=== PATIENT | female | born 1935 | race Asian ===

== ENCOUNTER 2018-10-28 10:51 | Inpatient (IN) | payer MEDICARE, OTHER ==
[~2018-10-28] VITALS: Ht 160 cm; Wt 73.5 kg
[~2018-10-28 10:51] MED LIST: AMLO1CAP2 PO; ATEN50TA PO; ATOR20TA86 PO; GLIP10TA9 PO; ISOS120T14 PO; METF-961 PO; NITR0.4I3 IV; PIOG15TA6 PO; RALO60 PO; WARF3TAB29 PO
[2018-10-28] MEDS ORDERED: ACAR50TA11 PO (11:02)
[2018-10-28] MEDS ORDERED: BENA20 PO (11:02)
[2018-10-28] MEDS ORDERED: BENZ-51 PO (11:02)
[2018-10-28] MEDS ORDERED: VITAD1000 PO (11:02)
[2018-10-28] MEDS ORDERED: FURO20 PO (11:02)
[2018-10-28] MEDS ORDERED: SITA1TAB6 PO (11:02)
[2018-10-28] MEDS ORDERED: RIVA15T PO (11:02)
[2018-10-28] MEDS ORDERED: CARV25 PO (11:02)
[2018-10-28] MEDS ORDERED: SLOWK8 PO (11:02)
[2018-10-28] MEDS ORDERED: TIMO.25OS OU (11:02)
[2018-10-28] MEDS ORDERED: OS500 PO (11:02)
[2018-10-28 11:40] LABS: HEMATOCRIT 36.1 % (36-46); HEMOGLOBIN 12.1 g/dL (12.0-16.0); MEAN CORPUSCULAR HEMOGLOBIN 25.1 pg (26.0-34.0); MEAN CORPUSCULAR HGB CONC 33.5 G/dL (31.0-37.0); MEAN CORPUSCULAR VOLUME 75 fL (80-100); PLATELET COUNT (AUTO) 191 K/uL (150-450); RED BLOOD CELL COUNT(AUTO) 4.82 MIL/uL (4.00-5.20); RED CELL DISTRIBUTION WIDTH 16.5 % (11.5-14.5)
[2018-10-28] MEDS ORDERED: SODIUM CHLORIDE 0.9% 2,150 ML IV ONE (11:41)
[2018-10-28 11:43] LABS: INR 1.1 (0.9-1.1); PROTHROMBIN TIME 11.7 SEC (9.4-11.6)
[2018-10-28 11:45] LABS: ALBUMIN 1.7 g/dL (3.4-5.0); BILIRUBIN,TOTAL 0.6 mg/dL (0.1-1.0); CALCIUM, TOTAL 8.3 mg/dL (8.8-10.5); CREATININE 3.59 mg/dL (0.60-1.30); POTASSIUM 4.8 mmol/L (3.5-5.1)
[2018-10-28] MEDS ORDERED: CefTRIAXone SODIUM 2 GM in DEXTROSE 5%-WATER 50 ML IV ONE (11:45)
[2018-10-28] MEDS ORDERED: SODIUM CHLORIDE 0.9% 250 ML IV ONE (11:45)
[2018-10-28 11:48] LABS: LACTIC ACID 1.6 mmol/L (0.4-2.0)
[2018-10-28 11:57] LABS: BAND NEUTROPHILS % (MANUAL) 11 % (0-5); LYMPHOCYTES % (MANUAL) 6 % (22-44); METAMYELOCYTES % 1 % (0-0); MONOCYTES % (MANUAL) 2 % (2-9); MYELOCYTES % 1 % (0-0); SEGMENTED NEUTROPHILS % 79 % (40-70)
[2018-10-28] MEDS ORDERED: ISOS30TA6 PO (12:04)
[2018-10-28] MEDS ORDERED: NITR.4 SL (12:04)
[2018-10-28] MEDS ORDERED: AMLO2.5T4 PO (12:04)
[2018-10-28] MEDS ORDERED: GLIP5 PO (12:04)
[2018-10-28 12:23] LABS: CREATININE,URINE RANDOM 95.1 mg/dL (30.0-125.0)
[2018-10-28 12:36] LABS: APPEARANCE,URINE TURBID (CLEAR); BILIRUBIN,URINE NEGATIVE (NEGATIVE); GLUCOSE, URINE (UA) NEGATIVE (NEGATIVE); KETONES,URINE NEGATIVE (NEGATIVE); LEUKOCYTE ESTERASE ,URINE LARGE (NEGATIVE); NITRATE,URINE NEGATIVE (NEGATIVE); OCCULT BLOOD,URINE LARGE (NEGATIVE); PROTEIN,URINE SEE CONFIRM (NEGATIVE); UROBILINOGEN,URINE 0.2 mg/dL (<=1.0)
[2018-10-28 12:44] LABS: BACTERIA,URINE Many /HPF (None Seen); RBC,URINE 51-100 /HPF (0-2); SULFOSALICYLIC ACID,URINE 3+ (Negative); WBC,URINE >100 /HPF (0-5)
[2018-10-28 13:52] LABS: INFLUENZA TYPE A NEGATIVE FOR TYPE A (NEGATIVE); INFLUENZA TYPE B NEGATIVE FOR TYPE B (NEGATIVE)
[2018-10-28 14:38] LABS: CREATININE 3.54 mg/dL (0.60-1.30); POTASSIUM 4.5 mmol/L (3.5-5.1)
[2018-10-28] MEDS ORDERED: 0.9% SODIUM CHLORIDE 10 ML SYRINGE IVP PRN ×2 (15:15)
[2018-10-28] MEDS ORDERED: ZOLPIDEM TARTRATE 5 MG TABLET PO PRN (15:15)
[2018-10-28] MEDS ORDERED: IPRATROPIUM BROMIDE 0.5 MG/2.5 ML NEB SOLUTION NEB PRN (15:15)
[2018-10-28] MEDS ORDERED: ALBUTEROL SULFATE 2.5 MG/0.5 ML NEB SOLUTION NEB PRN (15:15)
[2018-10-28] MEDS ORDERED: ATORVASTATIN CALCIUM 20 MG TABLET PO SCH ×2 (15:15→21:00)
[2018-10-28] MEDS ORDERED: ONDANSETRON HCL 4 MG/2 ML VIAL IVP PRN (15:15)
[2018-10-28] MEDS ORDERED: BENZONATATE 100 MG CAPSULE PO PRN (15:15)
[2018-10-28] MEDS ORDERED: SODIUM CHLORIDE 0.9% 1,000 ML IV SCH (16:18)
[2018-10-28] MEDS: PANTOPRAZOLE SODIUM 40 MG DR TABLET PO SCH (16:21)
[2018-10-28 17:41] LABS: PHOSPHORUS 4.6 mg/dL (2.5-4.9)
[2018-10-28] MEDS: DOCUSATE SODIUM 250 MG CAPSULE PO SCH ×2 (17:51→20:01)
[2018-10-28] MEDS: ACARBOSE 50 MG TABLET PO SCH (17:52)
[2018-10-28 20:00] VITALS: BP 98/57
[2018-10-28] MEDS: HEPARIN SODIUM,PORCINE 5,000 UNITS/ML VIAL SQ SCH (20:01)
[2018-10-28] MEDS: TIMOLOL MALEATE 0.25% 5 ML OPHTHALMIC SOLUTION OU SCH (20:01)
[2018-10-28] MEDS: METOPROLOL TARTRATE 25 MG TABLET PO SCH (21:00)
[2018-10-28] MEDS ORDERED: CARVEDILOL 25 MG TABLET PO SCH (21:00)
[2018-10-28] MEDS ORDERED: DEXTROSE 50%-WATER 25 GM/50 ML SYRINGE IVP ONE ×2 (21:14→21:15)
[2018-10-28] MEDS: ATORVASTATIN CALCIUM 10 MG TABLET PO SCH (21:28)
[2018-10-28] MEDS: APIXABAN 2.5 MG TABLET PO SCH (21:28)
[2018-10-29] VITALS: BP 99/43
[2018-10-29 04:00] VITALS: BP 115/67
[2018-10-29 05:03] LABS: HEMATOCRIT 32.6 % (36-46); HEMOGLOBIN 10.7 g/dL (12.0-16.0); MEAN CORPUSCULAR HEMOGLOBIN 24.7 pg (26.0-34.0); MEAN CORPUSCULAR HGB CONC 32.8 G/dL (31.0-37.0); MEAN CORPUSCULAR VOLUME 76 fL (80-100); PLATELET COUNT (AUTO) 203 K/uL (150-450); RED BLOOD CELL COUNT(AUTO) 4.32 MIL/uL (4.00-5.20); RED CELL DISTRIBUTION WIDTH 16.1 % (11.5-14.5)
[2018-10-29 05:26] LABS: B-TYPE NATRIURETIC PEPTIDE 328 pg/mL (0-100)
[2018-10-29] MEDS: PANTOPRAZOLE SODIUM 40 MG DR TABLET PO SCH (06:27)
[2018-10-29] MEDS ORDERED: GlipiZIDE 5 MG TABLET PO SCH (06:30)
[2018-10-29] MEDS ORDERED: DEXTROSE 50%-WATER 25 GM/50 ML SYRINGE IVP ONE (06:45)
[2018-10-29 06:49] LABS: HEMOGLOBIN A1C 7.6 % (4.5-6.2)
[2018-10-29 06:52] LABS: ALANINE AMINOTRANSFERASE 39 U/L (12-78); ALBUMIN 1.4 g/dL (3.4-5.0); ALKALINE PHOSPHATASE 103 U/L (46-116); ANION GAP 12 mmol/L (8-16); ASPARTATE AMINOTRANSFERASE 80 U/L (15-37); BILIRUBIN,TOTAL 0.3 mg/dL (0.1-1.0); CALCIUM, TOTAL 7.3 mg/dL (8.8-10.5); CARBON DIOXIDE 18 mmol/L (22-29); CHLORIDE 85 mmol/L (98-107); CREATININE 3.92 mg/dL (0.60-1.30); GLOMERULAR FILTR. RATE CALC 11 mL/min (>60); GLUCOSE,RANDOM 77 mg/dL (70-110); HDL CHOLESTEROL 10 mg/dL (40-60); PHOSPHORUS 5.1 mg/dL (2.5-4.9); POTASSIUM 4.6 mmol/L (3.5-5.1); TOTAL PROTEIN, SERUM 5.9 g/dL (6.4-8.2); TRIGLYCERIDES 81 mg/dL (15-150); UREA NITROGEN, BLOOD 85 mg/dL (7-18)
[2018-10-29 06:54] LABS: SODIUM SERUM 115 mmol/L (136-145)
[2018-10-29] MEDS ORDERED: DEXTROSE 5%-0.9% SODIUM CHL 1,000 ML IV SCH (07:00)
[2018-10-29] MEDS ORDERED: SODIUM CHLORIDE 0.9% 1,000 ML IV SCH ×2 (07:56→12:15)
[2018-10-29 08:00] VITALS: BP 124/57
[2018-10-29] MEDS: SODIUM CHLORIDE 0.9% 1,000 ML IV SCH ×2 (08:00→23:50)
[2018-10-29] MEDS: ACARBOSE 50 MG TABLET PO SCH ×2 (08:00→17:17)
[2018-10-29] MEDS: SODIUM CHLORIDE 1 GM TABLET PO SCH ×3 (08:15→17:18)
[2018-10-29 08:33] LABS: BAND NEUTROPHILS % (MANUAL) 12 % (0-5); LYMPHOCYTES % (MANUAL) 4 % (22-44); METAMYELOCYTES % 1 % (0-0); MONOCYTES % (MANUAL) 3 % (2-9); MYELOCYTES % 1 % (0-0); SEGMENTED NEUTROPHILS % 79 % (40-70)
[2018-10-29 08:35] LABS: PLATELET MORPHOLOGY COMMENT GIANT PLTS PRESENT
[2018-10-29 08:36] LABS: WBC MORPHOLOGY TOXIC GRANULATION
[2018-10-29 08:51] LABS: GLUCOSE,POINT OF CARE 63 MG/DL (70-110)
[2018-10-29 08:51] LABS: GLUCOSE,POINT OF CARE 115 MG/DL (70-110)
[2018-10-29 08:51] LABS: GLUCOSE,POINT OF CARE 206 MG/DL (70-110)
[2018-10-29 08:52] LABS: GLUCOSE,POINT OF CARE 189 MG/DL (70-110)
[2018-10-29 08:52] LABS: GLUCOSE,POINT OF CARE 61 MG/DL (70-110)
[2018-10-29] MEDS ORDERED: AmLODIPine BESYLATE 2.5 MG TABLET PO SCH (09:00)
[2018-10-29] MEDS: DOCUSATE SODIUM 250 MG CAPSULE PO SCH ×3 (09:00→20:53)
[2018-10-29] MEDS: CHOLECALCIFEROL (VIT D3) 1,000 UNITS TABLET PO SCH (09:00)
[2018-10-29] MEDS: METOPROLOL TARTRATE 25 MG TABLET PO SCH ×3 (09:00→21:00)
[2018-10-29] MEDS: CALCIUM OYSTER SHELL 500 MG TABLET PO SCH (09:00)
[2018-10-29] MEDS: HEPARIN SODIUM,PORCINE 5,000 UNITS/ML VIAL SQ SCH (09:00)
[2018-10-29 09:01] LABS: CHOLESTEROL < 50 mg/dL (131-200); LDL CHOL (CALC.) 24 mg/dL (0-130)
[2018-10-29] MEDS: APIXABAN 2.5 MG TABLET PO SCH ×2 (10:20→20:48)
[2018-10-29] MEDS: TIMOLOL MALEATE 0.25% 5 ML OPHTHALMIC SOLUTION OU SCH ×2 (10:21→20:48)
[2018-10-29 12:00] VITALS: BP 92/51
[2018-10-29] MEDS: CefTRIAXone 1 GM/DEXTROSE 50 ML IV SCH (12:30)
[2018-10-29 12:44] LABS: GLUCOSE,POINT OF CARE 142 MG/DL (70-110)
[2018-10-29 12:44] LABS: GLUCOSE,POINT OF CARE 156 MG/DL (70-110)
[2018-10-29 13:14] LABS: HEMATOCRIT 33.5 % (36-46); HEMOGLOBIN 11.2 g/dL (12.0-16.0); MEAN CORPUSCULAR HEMOGLOBIN 25.3 pg (26.0-34.0); MEAN CORPUSCULAR HGB CONC 33.5 G/dL (31.0-37.0); MEAN CORPUSCULAR VOLUME 76 fL (80-100); PLATELET COUNT (AUTO) 189 K/uL (150-450); RED BLOOD CELL COUNT(AUTO) 4.43 MIL/uL (4.00-5.20); RED CELL DISTRIBUTION WIDTH 16.5 % (11.5-14.5)
[2018-10-29 13:22] LABS: CALCIUM, TOTAL 7.6 mg/dL (8.8-10.5); CREATININE 3.95 mg/dL (0.60-1.30); POTASSIUM 4.5 mmol/L (3.5-5.1)
[2018-10-29 13:33] LABS: BAND NEUTROPHILS % (MANUAL) 15 % (0-5); LYMPHOCYTES % (MANUAL) 3 % (22-44); METAMYELOCYTES % 1 % (0-0); MONOCYTES % (MANUAL) 3 % (2-9); MYELOCYTES % 2 % (0-0); SEGMENTED NEUTROPHILS % 76 % (40-70)
[2018-10-29 16:00] VITALS: BP 119/58
[2018-10-29] MEDS ORDERED: LEVOFLOXACIN 750 MG/D5% WATER 150 ML IV ONE (16:00)
[2018-10-29 17:04] LABS: GLUCOSE,POINT OF CARE 136 MG/DL (70-110)
[2018-10-29] MEDS: ONDANSETRON HCL 4 MG/2 ML VIAL IVP SCH (17:17)
[2018-10-29] MEDS ORDERED: GuaiFENesin/CODEINE [SUGAR FREE] 200-20MG/10 ML SYRUP UDCUP PO PRN (17:45)
[2018-10-29 20:00] VITALS: BP 95/63
[2018-10-29] MEDS: ATORVASTATIN CALCIUM 10 MG TABLET PO SCH (20:48)
[2018-10-29] MEDS: BENZONATATE 100 MG CAPSULE PO SCH (20:49)
[2018-10-29 21:11] LABS: ALBUMIN 1.3 g/dL (3.4-5.0); BILIRUBIN,TOTAL 0.2 mg/dL (0.1-1.0); CALCIUM, TOTAL 7.8 mg/dL (8.8-10.5); CREATININE 3.84 mg/dL (0.60-1.30); TOTAL PROTEIN, SERUM 6.1 g/dL (6.4-8.2)
[2018-10-29] MEDS ORDERED: NOREPINEPHRINE 4 MG/D5%-WATER 250 ML IV ONE (21:47)
[2018-10-29 22:26] LABS: ABG A-A DIFF O2 523.8 mmHg (10-20.0); ABG BASE EXCESS -13.3 mmol/L (-2.0-3.0); ABG CARBOXYHEMOGLOBIN 0.3 % (0.0-1.5); ABG HCO3 14.9 mmol/L (22.0-26.0); ABG METHEMOGLOBIN 0.3 % (0.0-1.5); ABG OXYGEN CONTENT 16.2 mL/dL (15.0-23.0); ABG OXYGEN SATURATION 98.6 % (95.0-98.0); ABG PCO2 34 mmHg (35-45); ABG TOTAL HEMOGLOBIN 11.5 G/dL (12.0-18.0); SOURCE, BLOOD GAS ARTERIAL; TEMPERATURE, FAHRENHEIT, BG 97.6 FAHREN (96.0-98.6)
[2018-10-29 22:28] LABS: SITE, BLOOD GAS RT RADIAL
[2018-10-29 22:29] LABS: O2 DEVICE,BLOOD GAS VENTILATOR (ROOM AIR); PEEP,BG 5 cm H2O; VT, ABG 500 ml
[2018-10-29] MEDS ORDERED: VASOPRESSIN 40 UNITS in DEXTROSE 5%-WATER 98 ML IV PRN (22:35)
[2018-10-29] MEDS: PROPOFOL 1000 MG/ISO-OSM 100 ML IV PRN (23:54)
[2018-10-29] MEDS: PHENYLEPHRINE 200 MG/D5%-WATER 250 ML IV PRN ×2 (23:55→23:59)
[2018-10-29] MEDS: NOREPINEPHRINE 4 MG/D5%-WATER 250 ML IV PRN (23:58)
[2018-10-30] VITALS (7 sets, daily range): BP systolic 88–128; BP diastolic 31–57
[2018-10-30] MEDS: SODIUM CHLORIDE 1 GM TABLET PO SCH ×2 (00:57→05:58)
[2018-10-30 05:12] LABS: ALBUMIN 1.2 g/dL (3.4-5.0); BILIRUBIN,TOTAL 0.2 mg/dL (0.1-1.0); CREATININE 4.24 mg/dL (0.60-1.30); POTASSIUM 4.8 mmol/L (3.5-5.1); TOTAL PROTEIN, SERUM 5.4 g/dL (6.4-8.2)
[2018-10-30] MEDS: ONDANSETRON HCL 4 MG/2 ML VIAL IVP SCH ×3 (05:59→17:38)
[2018-10-30] MEDS: PANTOPRAZOLE SODIUM 40 MG DR TABLET PO SCH (05:59)
[2018-10-30] MEDS: NOREPINEPHRINE 4 MG/D5%-WATER 250 ML IV PRN ×7 (06:00→22:46)
[2018-10-30 06:59] LABS: GLUCOSE,POINT OF CARE 206 MG/DL (70-110)
[2018-10-30 06:59] LABS: GLUCOSE,POINT OF CARE 220 MG/DL (70-110)
[2018-10-30 06:59] LABS: GLUCOSE,POINT OF CARE 297 MG/DL (70-110)
[2018-10-30] MEDS: ACARBOSE 50 MG TABLET PO SCH ×2 (07:54→17:00)
[2018-10-30] MEDS: DOCUSATE SODIUM 250 MG CAPSULE PO SCH ×3 (07:55→20:53)
[2018-10-30] MEDS: PROPOFOL 1000 MG/ISO-OSM 100 ML IV PRN ×3 (08:18→22:47)
[2018-10-30] MEDS ORDERED: SODIUM CHLORIDE 0.9% 500 ML IV ONE (08:48)
[2018-10-30] MEDS: APIXABAN 2.5 MG TABLET PO SCH ×2 (09:33→20:52)
[2018-10-30] MEDS: CHOLECALCIFEROL (VIT D3) 1,000 UNITS TABLET PO SCH (09:33)
[2018-10-30] MEDS: BENZONATATE 100 MG CAPSULE PO SCH ×3 (09:33→20:52)
[2018-10-30] MEDS: CALCIUM OYSTER SHELL 500 MG TABLET PO SCH (09:33)
[2018-10-30] MEDS: TIMOLOL MALEATE 0.25% 5 ML OPHTHALMIC SOLUTION OU SCH ×2 (09:35→20:52)
[2018-10-30] MEDS ORDERED: HEPARIN SODIUM,PORCINE 1,000 UNITS/ML VIAL ONE (09:58)
[2018-10-30] MEDS ORDERED: HEPARIN SODIUM,PORCINE 5,000 UNITS/ML VIAL IVP ONE ×2 (10:00→10:15)
[2018-10-30 11:49] LABS: HEMATOCRIT 31.5 % (36-46); HEMOGLOBIN 10.4 g/dL (12.0-16.0); MEAN CORPUSCULAR HEMOGLOBIN 24.8 pg (26.0-34.0); MEAN CORPUSCULAR VOLUME 75 fL (80-100); PLATELET COUNT (AUTO) 207 K/uL (150-450); RED CELL DISTRIBUTION WIDTH 16.6 % (11.5-14.5)
[2018-10-30 11:56] LABS: CALCIUM, TOTAL 7.1 mg/dL (8.8-10.5); CREATININE 4.16 mg/dL (0.60-1.30); MAGNESIUM 1.9 mg/dL (1.80-2.40); POTASSIUM 4.3 mmol/L (3.5-5.1)
[2018-10-30] MEDS: CefTRIAXone 1 GM/DEXTROSE 50 ML IV SCH (12:00)
[2018-10-30] MEDS ORDERED: DEXTROSE 50%-WATER 25 GM/50 ML SYRINGE IVP PRN (12:15)
[2018-10-30 12:34] LABS: BAND NEUTROPHILS % (MANUAL) 17 % (0-5); LYMPHOCYTES % (MANUAL) 1 % (22-44); METAMYELOCYTES % 2 % (0-0); MONOCYTES % (MANUAL) 1 % (2-9); SEGMENTED NEUTROPHILS % 79 % (40-70)
[2018-10-30] MEDS: INSULIN LISPRO 100 UNITS/ML SQ PRN ×3 (12:36→23:47)
[2018-10-30] MEDS: SODIUM CHLORIDE 0.9% 1,000 ML IV SCH (12:39)
[2018-10-30] MEDS: PIPERACILLIN SODIUM/TAZOBACTAM 4.5 GM in DEXTROSE 5%-WATER 100 ML IV SCH ×2 (13:36→20:52)
[2018-10-30] MEDS ORDERED: EPINEPHrine 1:10,000 [1 MG/10 ML] SYRINGE IVP ONE (14:17)
[2018-10-30] MEDS ORDERED: SODIUM BICARBONATE [ADULT] 8.4% 50 MEQ/50 ML SYRINGE IVP ONE (14:17)
[2018-10-30] MEDS ORDERED: ATROPINE SULFATE 0.1 MG/ML 10 ML SYRINGE IVP ONE (14:17)
[2018-10-30 14:59] LABS: CREATININE 3.92 mg/dL (0.60-1.30); POTASSIUM 3.9 mmol/L (3.5-5.1)
[2018-10-30] MEDS ORDERED: HEPARIN SODIUM,PORCINE 1,000 UNITS/ML VIAL IVP ONE ×2 (15:45)
[2018-10-30 16:24] LABS: GLUCOSE,POINT OF CARE 297 MG/DL (70-110)
[2018-10-30 19:07] LABS: CALCIUM, TOTAL 7.2 mg/dL (8.8-10.5); CREATININE 3.71 mg/dL (0.60-1.30); PHOSPHORUS 5.3 mg/dL (2.5-4.9); POTASSIUM 3.9 mmol/L (3.5-5.1)
[2018-10-30] MEDS: ATORVASTATIN CALCIUM 10 MG TABLET PO SCH (20:52)
[2018-10-31] VITALS (9 sets, daily range): BP systolic 108–132; BP diastolic 3–50
[2018-10-31 04:29] LABS: HEMATOCRIT 30.2 % (36-46); HEMOGLOBIN 9.9 g/dL (12.0-16.0); MEAN CORPUSCULAR HEMOGLOBIN 24.7 pg (26.0-34.0); MEAN CORPUSCULAR HGB CONC 32.8 G/dL (31.0-37.0); MEAN CORPUSCULAR VOLUME 75 fL (80-100); PLATELET COUNT (AUTO) 185 K/uL (150-450); RED BLOOD CELL COUNT(AUTO) 4.02 MIL/uL (4.00-5.20); RED CELL DISTRIBUTION WIDTH 16.8 % (11.5-14.5)
[2018-10-31] MEDS: NOREPINEPHRINE 4 MG/D5%-WATER 250 ML IV PRN ×4 (04:39→20:41)
[2018-10-31] MEDS: PROPOFOL 1000 MG/ISO-OSM 100 ML IV PRN ×4 (04:39→18:23)
[2018-10-31] MEDS: PIPERACILLIN SODIUM/TAZOBACTAM 4.5 GM in DEXTROSE 5%-WATER 100 ML IV SCH (04:45)
[2018-10-31] MEDS: SODIUM CHLORIDE 0.9% 1,000 ML IV SCH ×2 (04:50→17:16)
[2018-10-31 05:00] LABS: ALBUMIN 1.1 g/dL (3.4-5.0); BILIRUBIN,TOTAL 0.3 mg/dL (0.1-1.0); CALCIUM, TOTAL 6.9 mg/dL (8.8-10.5); CREATININE 3.59 mg/dL (0.60-1.30); MAGNESIUM 1.9 mg/dL (1.80-2.40); PHOSPHORUS 4.8 mg/dL (2.5-4.9); TOTAL PROTEIN, SERUM 4.6 g/dL (6.4-8.2)
[2018-10-31 05:04] LABS: BAND NEUTROPHILS % (MANUAL) 31 % (0-5); LYMPHOCYTES % (MANUAL) 2 % (22-44); MONOCYTES % (MANUAL) 4 % (2-9); SEGMENTED NEUTROPHILS % 63 % (40-70)
[2018-10-31 05:06] LABS: PLATELET MORPHOLOGY COMMENT GIANT PLTS PRESENT
[2018-10-31] MEDS: ONDANSETRON HCL 4 MG/2 ML VIAL IVP SCH (05:30)
[2018-10-31] MEDS: PANTOPRAZOLE SODIUM 40 MG DR TABLET PO SCH (05:31)
[2018-10-31] MEDS: INSULIN LISPRO 100 UNITS/ML SQ PRN ×4 (05:32→23:57)
[2018-10-31 07:50] LABS: ABG A-A DIFF O2 201.1 mmHg (10-20.0); ABG BASE EXCESS -11.5 mmol/L (-2.0-3.0); ABG CARBOXYHEMOGLOBIN 0.3 % (0.0-1.5); ABG METHEMOGLOBIN 0.3 % (0.0-1.5); ABG OXYGEN CONTENT 14.8 mL/dL (15.0-23.0); ABG OXYGEN SATURATION 97.7 % (95.0-98.0); ABG OXYHEMOGLOBIN 97.1 % (94.0-100.0); ABG PCO2 37 mmHg (35-45); ABG PH 7.251 (7.35-7.450); ABG TOTAL HEMOGLOBIN 10.7 G/dL (12.0-18.0); O2 DEVICE,BLOOD GAS VENTILATOR (ROOM AIR); PO2, ARTERIAL BG 114.2 mmHg (71.0-79.0); SITE, BLOOD GAS ARTERIAL LINE; SOURCE, BLOOD GAS ARTERIAL; TEMPERATURE, FAHRENHEIT, BG 98.6 FAHREN (96.0-98.6)
[2018-10-31 07:51] LABS: PEEP,BG 5 cm H2O; SPONTANEOUS VT, BG 489 ml; VT, ABG 500 ml
[2018-10-31] MEDS: AMINO ACIDS/PROTEIN HYDROLYS 30 ML TUBE PO SCH ×2 (08:00→17:16)
[2018-10-31] MEDS: CHOLECALCIFEROL (VIT D3) 1,000 UNITS TABLET PO SCH (09:00)
[2018-10-31] MEDS: PHENYLEPHRINE 200 MG/D5%-WATER 250 ML IV PRN (09:00)
[2018-10-31] MEDS: DOCUSATE SODIUM 250 MG CAPSULE PO SCH ×3 (09:00→20:41)
[2018-10-31] MEDS: BENZONATATE 100 MG CAPSULE PO SCH ×3 (09:00→20:41)
[2018-10-31] MEDS: TIMOLOL MALEATE 0.25% 5 ML OPHTHALMIC SOLUTION OU SCH ×2 (09:01→20:42)
[2018-10-31] MEDS: ACARBOSE 50 MG TABLET PO SCH ×2 (09:01→17:16)
[2018-10-31] MEDS: APIXABAN 2.5 MG TABLET PO SCH ×2 (09:01→20:41)
[2018-10-31] MEDS: CALCIUM OYSTER SHELL 500 MG TABLET PO SCH (09:01)
[2018-10-31] MEDS ORDERED: ACETAMINOPHEN 1000 MG/ISO-OSM 100 ML IV SCH (10:00)
[2018-10-31] MEDS ORDERED: VASOPRESSIN 40 UNITS in DEXTROSE 5%-WATER 98 ML IV PRN (10:15)
[2018-10-31 10:48] LABS: GLUCOSE,POINT OF CARE 261 MG/DL (70-110)
[2018-10-31 10:48] LABS: GLUCOSE,POINT OF CARE 266 MG/DL (70-110)
[2018-10-31 10:51] LABS: CALCIUM, TOTAL 7.5 mg/dL (8.8-10.5); CREATININE 3.22 mg/dL (0.60-1.30); POTASSIUM 3.8 mmol/L (3.5-5.1)
[2018-10-31 10:51] LABS: GLUCOSE,POINT OF CARE 282 MG/DL (70-110)
[2018-10-31] MEDS: LEVOFLOXACIN 500 MG/D5% WATER 100 ML IV SCH (12:28)
[2018-10-31] MEDS ORDERED: *CLINICAL-RX DOSING [ENTER DRUG IN COMMENTS] CLINICAL ONE (13:00)
[2018-10-31] MEDS ORDERED: CefoTEtan DISOD 1 GM/DEXTROSE 50 ML IV ONE (13:15)
[2018-10-31 14:33] LABS: CALCIUM, TOTAL 7.3 mg/dL (8.8-10.5); CREATININE 2.99 mg/dL (0.60-1.30); POTASSIUM 3.8 mmol/L (3.5-5.1)
[2018-10-31 18:23] LABS: CALCIUM, TOTAL 7.3 mg/dL (8.8-10.5); CREATININE 2.65 mg/dL (0.60-1.30); POTASSIUM 3.7 mmol/L (3.5-5.1)
[2018-10-31 18:24] LABS: GLUCOSE,POINT OF CARE 277 MG/DL (70-110)
[2018-10-31] MEDS: POTASSIUM CHLORIDE 20 MEQ in NXSTAGE RFP-402 K0/CA3 5,000 ML IRRIG PRN ×2 (19:43→23:58)
[2018-10-31] MEDS: ATORVASTATIN CALCIUM 10 MG TABLET PO SCH (20:41)
[2018-10-31 22:28] LABS: CALCIUM, TOTAL 7.6 mg/dL (8.8-10.5); CREATININE 2.56 mg/dL (0.60-1.30); POTASSIUM 3.8 mmol/L (3.5-5.1)
[2018-11-01] VITALS (8 sets, daily range): BP systolic 99–117; BP diastolic 38–45
[2018-11-01] MEDS: PROPOFOL 1000 MG/ISO-OSM 100 ML IV PRN ×5 (01:05→16:54)
[2018-11-01 01:24] LABS: GLUCOSE,POINT OF CARE 229 MG/DL (70-110)
[2018-11-01 01:59] LABS: CALCIUM, TOTAL 7.5 mg/dL (8.8-10.5); CREATININE 2.33 mg/dL (0.60-1.30); POTASSIUM 3.9 mmol/L (3.5-5.1)
[2018-11-01] MEDS ORDERED: SODIUM CHLORIDE 0.9% 500 ML IV ONE ×2 (04:29→13:29)
[2018-11-01 05:10] LABS: HEMATOCRIT 28.3 % (36-46); HEMOGLOBIN 9.4 g/dL (12.0-16.0); MEAN CORPUSCULAR HEMOGLOBIN 24.8 pg (26.0-34.0); MEAN CORPUSCULAR VOLUME 75 fL (80-100); PLATELET COUNT (AUTO) 156 K/uL (150-450); RED BLOOD CELL COUNT(AUTO) 3.78 MIL/uL (4.00-5.20); RED CELL DISTRIBUTION WIDTH 16.9 % (11.5-14.5)
[2018-11-01 05:22] LABS: BILIRUBIN,TOTAL 0.3 mg/dL (0.1-1.0); CALCIUM, TOTAL 7.6 mg/dL (8.8-10.5); CREATININE 2.2 mg/dL (0.60-1.30); MAGNESIUM 1.6 mg/dL (1.80-2.40); TOTAL PROTEIN, SERUM 5.1 g/dL (6.4-8.2)
[2018-11-01] MEDS: POTASSIUM CHLORIDE 20 MEQ in NXSTAGE RFP-402 K0/CA3 5,000 ML IRRIG PRN (05:30)
[2018-11-01] MEDS: INSULIN LISPRO 100 UNITS/ML SQ PRN ×3 (05:31→18:49)
[2018-11-01 06:02] LABS: BAND NEUTROPHILS % (MANUAL) 9 % (0-5); EOSINOPHILS % (MANUAL) 3 % (1-6); LYMPHOCYTES % (MANUAL) 3 % (22-44); METAMYELOCYTES % 3 % (0-0); MONOCYTES % (MANUAL) 5 % (2-9); SEGMENTED NEUTROPHILS % 77 % (40-70)
[2018-11-01] MEDS: SODIUM CHLORIDE 0.9% 1,000 ML IV SCH (07:58)
[2018-11-01] MEDS: PANTOPRAZOLE SODIUM 40 MG/VIAL IVP SCH (07:59)
[2018-11-01] MEDS: BENZONATATE 100 MG CAPSULE PO SCH ×3 (07:59→20:37)
[2018-11-01] MEDS: DOCUSATE SODIUM 250 MG CAPSULE PO SCH ×3 (07:59→20:37)
[2018-11-01] MEDS: ACARBOSE 50 MG TABLET PO SCH ×2 (08:00→16:11)
[2018-11-01] MEDS: CHOLECALCIFEROL (VIT D3) 1,000 UNITS TABLET PO SCH (08:00)
[2018-11-01] MEDS: TIMOLOL MALEATE 0.25% 5 ML OPHTHALMIC SOLUTION OU SCH ×2 (08:01→20:37)
[2018-11-01] MEDS: AMINO ACIDS/PROTEIN HYDROLYS 30 ML TUBE PO SCH ×2 (08:02→16:12)
[2018-11-01] MEDS: APIXABAN 2.5 MG TABLET PO SCH ×2 (08:04→20:48)
[2018-11-01] MEDS: CALCIUM OYSTER SHELL 500 MG TABLET PO SCH (08:04)
[2018-11-01 08:19] LABS: GLUCOSE,POINT OF CARE 197 MG/DL (70-110)
[2018-11-01 09:26] LABS: CALCIUM, TOTAL 7.6 mg/dL (8.8-10.5); CREATININE 2.11 mg/dL (0.60-1.30); POTASSIUM 3.9 mmol/L (3.5-5.1)
[2018-11-01] MEDS ORDERED: MAGNESIUM SULFATE 3 GM in DEXTROSE 5%-WATER 100 ML IV ONE (10:00)
[2018-11-01] MEDS: ALBUMIN HUMAN 25%-25GM/100ML 100 ML IV SCH ×2 (10:32→21:02)
[2018-11-01] MEDS: CefoTEtan DISOD 1 GM/DEXTROSE 50 ML IV SCH (10:33)
[2018-11-01 12:35] LABS: GLUCOSE,POINT OF CARE 221 MG/DL (70-110)
[2018-11-01] MEDS: HEPARIN SODIUM,PORCINE 1,000 UNITS/ML VIAL IVP PRN ×2 (16:25→16:26)
[2018-11-01 16:27] LABS: CALCIUM, TOTAL 8.2 mg/dL (8.8-10.5); CREATININE 2.04 mg/dL (0.60-1.30); POTASSIUM 3.8 mmol/L (3.5-5.1)
[2018-11-01 20:28] LABS: GLUCOSE,POINT OF CARE 187 MG/DL (70-110)
[2018-11-01] MEDS: ATORVASTATIN CALCIUM 10 MG TABLET PO SCH (20:37)
[2018-11-01] MEDS: ACETAMINOPHEN 325 MG TABLET PO PRN (20:49)
[2018-11-02] VITALS: BP 101/42
[2018-11-02] MEDS: INSULIN LISPRO 100 UNITS/ML SQ PRN ×3 (00:22→18:26)
[2018-11-02] MEDS: PROPOFOL 1000 MG/ISO-OSM 100 ML IV PRN ×4 (01:26→21:24)
[2018-11-02 04:00] VITALS: BP 105/38
[2018-11-02 04:54] LABS: GLUCOSE,POINT OF CARE 198 MG/DL (70-110)
[2018-11-02 05:16] LABS: HEMOGLOBIN 8.5 g/dL (12.0-16.0); MEAN CORPUSCULAR HEMOGLOBIN 24.4 pg (26.0-34.0); MEAN CORPUSCULAR HGB CONC 32.9 G/dL (31.0-37.0); MEAN CORPUSCULAR VOLUME 74 fL (80-100); PLATELET COUNT (AUTO) 150 K/uL (150-450); RED CELL DISTRIBUTION WIDTH 16.9 % (11.5-14.5)
[2018-11-02 05:32] LABS: ALBUMIN 1.7 g/dL (3.4-5.0); BILIRUBIN,TOTAL 0.6 mg/dL (0.1-1.0); CREATININE 2.55 mg/dL (0.60-1.30); POTASSIUM 4.2 mmol/L (3.5-5.1); TOTAL PROTEIN, SERUM 5.6 g/dL (6.4-8.2)
[2018-11-02 05:52] LABS: BAND NEUTROPHILS % (MANUAL) 16 % (0-5); EOSINOPHILS % (MANUAL) 2 % (1-6); LYMPHOCYTES % (MANUAL) 5 % (22-44); METAMYELOCYTES % 2 % (0-0); MONOCYTES % (MANUAL) 3 % (2-9); SEGMENTED NEUTROPHILS % 72 % (40-70)
[2018-11-02] MEDS ORDERED: SODIUM CHLORIDE 0.9% 500 ML IV ONE (06:27)
[2018-11-02] MEDS: SODIUM CHLORIDE 0.9% 1,000 ML IV SCH (06:32)
[2018-11-02 07:24] LABS: MAGNESIUM 2.4 mg/dL (1.80-2.40); PHOSPHORUS 3.4 mg/dL (2.5-4.9)
[2018-11-02 08:00] VITALS: BP 126/47
[2018-11-02 08:14] LABS: GLUCOSE,POINT OF CARE 194 MG/DL (70-110)
[2018-11-02] MEDS: ACARBOSE 50 MG TABLET PO SCH ×2 (08:42→15:05)
[2018-11-02] MEDS: BENZONATATE 100 MG CAPSULE PO SCH ×3 (08:42→21:23)
[2018-11-02] MEDS: PANTOPRAZOLE SODIUM 40 MG/VIAL IVP SCH (08:42)
[2018-11-02] MEDS: CALCIUM OYSTER SHELL 500 MG TABLET PO SCH (08:42)
[2018-11-02] MEDS: CHOLECALCIFEROL (VIT D3) 1,000 UNITS TABLET PO SCH (08:42)
[2018-11-02] MEDS: APIXABAN 2.5 MG TABLET PO SCH ×2 (08:42→21:24)
[2018-11-02] MEDS: DOCUSATE SODIUM 250 MG CAPSULE PO SCH ×3 (08:45→21:00)
[2018-11-02] MEDS: CefoTEtan DISOD 1 GM/DEXTROSE 50 ML IV SCH (08:47)
[2018-11-02] MEDS: ALBUMIN HUMAN 25%-25GM/100ML 100 ML IV SCH ×2 (08:47→21:25)
[2018-11-02] MEDS: TIMOLOL MALEATE 0.25% 5 ML OPHTHALMIC SOLUTION OU SCH ×2 (08:48→21:23)
[2018-11-02] MEDS: AMINO ACIDS/PROTEIN HYDROLYS 30 ML TUBE PO SCH ×2 (08:48→15:05)
[2018-11-02] MEDS ORDERED: MANNITOL 25%-12.5 GM/50 ML VIAL IVP PRN (11:15)
[2018-11-02 12:00] VITALS: BP 103/41
[2018-11-02] MEDS ORDERED: HEPARIN SODIUM,PORCINE 1,000 UNITS/ML VIAL IVP ONE (12:00)
[2018-11-02] MEDS: HEPARIN SODIUM,PORCINE 1,000 UNITS/ML VIAL IVP PRN ×2 (12:17→12:18)
[2018-11-02 13:19] LABS: GLUCOSE,POINT OF CARE 156 MG/DL (70-110)
[2018-11-02] MEDS: LEVOFLOXACIN 500 MG/D5% WATER 100 ML IV SCH (14:03)
[2018-11-02 16:00] VITALS: BP 105/38
[2018-11-02 16:56] LABS: ABG A-A DIFF O2 133.9 mmHg (10-20.0); ABG BASE EXCESS -0.9 mmol/L (-2.0-3.0); ABG HCO3 23.9 mmol/L (22.0-26.0); ABG METHEMOGLOBIN 0.3 % (0.0-1.5); ABG OXYGEN CONTENT 11.9 mL/dL (15.0-23.0); ABG OXYGEN SATURATION 94.8 % (95.0-98.0); ABG OXYHEMOGLOBIN 94.5 % (94.0-100.0); ABG PCO2 36 mmHg (35-45); ABG PH 7.435 (7.35-7.450); ABG TOTAL HEMOGLOBIN 8.9 G/dL (12.0-18.0); PO2, ARTERIAL BG 73.9 mmHg (71.0-79.0); SOURCE, BLOOD GAS ARTERIAL; TEMPERATURE, FAHRENHEIT, BG 99.2 FAHREN (96.0-98.6)
[2018-11-02 16:57] LABS: O2 DEVICE,BLOOD GAS VENTILATOR (ROOM AIR); PEEP,BG 5 cm H2O; SITE, BLOOD GAS ARTERIAL LINE; VT, ABG 500 ml
[2018-11-02 17:30] LABS: CALCIUM, TOTAL 7.9 mg/dL (8.8-10.5); CREATININE 1.71 mg/dL (0.60-1.30); POTASSIUM 3.8 mmol/L (3.5-5.1)
[2018-11-02 20:00] VITALS: BP 102/37
[2018-11-02] MEDS: ATORVASTATIN CALCIUM 10 MG TABLET PO SCH (21:24)
[2018-11-02] MEDS: ACETAMINOPHEN 325 MG TABLET PO PRN (21:50)
[2018-11-03] VITALS (7 sets, daily range): BP systolic 106–131; BP diastolic 41–73
[2018-11-03] MEDS: INSULIN LISPRO 100 UNITS/ML SQ PRN ×4 (00:55→17:56)
[2018-11-03] MEDS ORDERED: SODIUM CHLORIDE 0.9% 500 ML IV ONE (02:34)
[2018-11-03] MEDS: PROPOFOL 1000 MG/ISO-OSM 100 ML IV PRN ×3 (04:33→23:13)
[2018-11-03 05:14] LABS: ALBUMIN 2.1 g/dL (3.4-5.0); BILIRUBIN,TOTAL 0.8 mg/dL (0.1-1.0); CREATININE 2.23 mg/dL (0.60-1.30); POTASSIUM 3.9 mmol/L (3.5-5.1); TOTAL PROTEIN, SERUM 5.7 g/dL (6.4-8.2)
[2018-11-03 06:15] LABS: GLUCOSE,POINT OF CARE 172 MG/DL (70-110)
[2018-11-03 06:15] LABS: GLUCOSE,POINT OF CARE 177 MG/DL (70-110)
[2018-11-03] MEDS: PANTOPRAZOLE SODIUM 40 MG/VIAL IVP SCH (08:49)
[2018-11-03] MEDS: BENZONATATE 100 MG CAPSULE PO SCH ×3 (08:50→21:13)
[2018-11-03] MEDS: APIXABAN 2.5 MG TABLET PO SCH ×2 (08:50→21:13)
[2018-11-03] MEDS: ACARBOSE 50 MG TABLET PO SCH ×2 (08:50→17:54)
[2018-11-03] MEDS: CALCIUM OYSTER SHELL 500 MG TABLET PO SCH (08:50)
[2018-11-03] MEDS: DOCUSATE SODIUM 250 MG CAPSULE PO SCH ×3 (09:00→21:00)
[2018-11-03] MEDS: CHOLECALCIFEROL (VIT D3) 1,000 UNITS TABLET PO SCH (09:46)
[2018-11-03] MEDS: TIMOLOL MALEATE 0.25% 5 ML OPHTHALMIC SOLUTION OU SCH ×2 (09:46→21:14)
[2018-11-03] MEDS: ALBUMIN HUMAN 25%-25GM/100ML 100 ML IV SCH ×2 (09:47→21:13)
[2018-11-03] MEDS: AMINO ACIDS/PROTEIN HYDROLYS 30 ML TUBE PO SCH ×3 (09:48→17:54)
[2018-11-03] MEDS: CefoTEtan DISOD 1 GM/DEXTROSE 50 ML IV SCH (09:48)
[2018-11-03] MEDS: SODIUM CHLORIDE 0.9% 1,000 ML IV SCH (09:55)
[2018-11-03 12:54] LABS: GLUCOSE,POINT OF CARE 196 MG/DL (70-110)
[2018-11-03] MEDS: HALOPERIDOL LACTATE 5 MG/ML VIAL IVP PRN ×2 (14:53→21:13)
[2018-11-03] MEDS: MetroNIDAZOLE 500 MG/NACL 100 ML IV SCH ×2 (14:53→21:44)
[2018-11-03 16:38] LABS: CALCIUM, TOTAL 8.3 mg/dL (8.8-10.5); CREATININE 2.69 mg/dL (0.60-1.30); MAGNESIUM 1.9 mg/dL (1.80-2.40); POTASSIUM 3.9 mmol/L (3.5-5.1)
[2018-11-03 19:19] LABS: GLUCOSE,POINT OF CARE 164 MG/DL (70-110)
[2018-11-03] MEDS: ATORVASTATIN CALCIUM 10 MG TABLET PO SCH (21:13)
[2018-11-04] VITALS (21 sets, daily range): BP systolic 95–125; BP diastolic 45–89
[2018-11-04] MEDS: INSULIN LISPRO 100 UNITS/ML SQ PRN ×5 (00:17→23:47)
[2018-11-04] MEDS: PROPOFOL 1000 MG/ISO-OSM 100 ML IV PRN ×3 (03:03→17:00)
[2018-11-04 05:05] LABS: HEMATOCRIT 22.4 % (36-46); HEMOGLOBIN 7.5 g/dL (12.0-16.0); MEAN CORPUSCULAR HEMOGLOBIN 25.2 pg (26.0-34.0); MEAN CORPUSCULAR HGB CONC 33.5 G/dL (31.0-37.0); MEAN CORPUSCULAR VOLUME 75 fL (80-100); PLATELET COUNT (AUTO) 126 K/uL (150-450); RED BLOOD CELL COUNT(AUTO) 2.99 MIL/uL (4.00-5.20); RED CELL DISTRIBUTION WIDTH 17.3 % (11.5-14.5)
[2018-11-04 05:29] LABS: ALBUMIN 2.3 g/dL (3.4-5.0); BILIRUBIN,TOTAL 0.5 mg/dL (0.1-1.0); CREATININE 3.09 mg/dL (0.60-1.30); MAGNESIUM 1.9 mg/dL (1.80-2.40); PHOSPHORUS 3.9 mg/dL (2.5-4.9); POTASSIUM 3.7 mmol/L (3.5-5.1); TOTAL PROTEIN, SERUM 5.7 g/dL (6.4-8.2)
[2018-11-04] MEDS: MetroNIDAZOLE 500 MG/NACL 100 ML IV SCH ×3 (05:29→22:06)
[2018-11-04 05:36] LABS: BAND NEUTROPHILS % (MANUAL) 21 % (0-5); BASOPHILS % (MANUAL) 1 % (0-2); LYMPHOCYTES % (MANUAL) 8 % (22-44); METAMYELOCYTES % 1 % (0-0); MONOCYTES % (MANUAL) 3 % (2-9); MYELOCYTES % 2 % (0-0); SEGMENTED NEUTROPHILS % 64 % (40-70)
[2018-11-04 05:37] LABS: PLATELET MORPHOLOGY COMMENT GIANT PLTS PRESENT
[2018-11-04 05:45] LABS: GLUCOSE,POINT OF CARE 185 MG/DL (70-110)
[2018-11-04 05:45] LABS: GLUCOSE,POINT OF CARE 198 MG/DL (70-110)
[2018-11-04] MEDS: SODIUM CHLORIDE 0.9% 1,000 ML IV SCH (08:24)
[2018-11-04] MEDS: TIMOLOL MALEATE 0.25% 5 ML OPHTHALMIC SOLUTION OU SCH ×2 (08:24→21:06)
[2018-11-04] MEDS: CALCIUM OYSTER SHELL 500 MG TABLET PO SCH (08:25)
[2018-11-04] MEDS: PANTOPRAZOLE SODIUM 40 MG/VIAL IVP SCH (08:25)
[2018-11-04] MEDS: CHOLECALCIFEROL (VIT D3) 1,000 UNITS TABLET PO SCH (08:26)
[2018-11-04] MEDS: ACARBOSE 50 MG TABLET PO SCH ×2 (08:26→16:56)
[2018-11-04] MEDS: BENZONATATE 100 MG CAPSULE PO SCH ×3 (08:26→21:07)
[2018-11-04] MEDS: AMINO ACIDS/PROTEIN HYDROLYS 30 ML TUBE PO SCH ×3 (08:26→16:57)
[2018-11-04] MEDS: DOCUSATE SODIUM 250 MG CAPSULE PO SCH ×3 (08:27→21:00)
[2018-11-04] MEDS: MULTIVITAMINS, THERAPEUTIC 15 ML UDCUP NG SCH (08:53)
[2018-11-04] MEDS: ALBUMIN HUMAN 25%-25GM/100ML 100 ML IV SCH ×2 (09:20→21:07)
[2018-11-04 09:44] LABS: PROTHROMBIN TIME 10.7 SEC (9.4-11.6)
[2018-11-04] MEDS ORDERED: MEBROFENIN TC99M/MCL ISOTOPE 1 EA INJ INJ ONE (11:10)
[2018-11-04] MEDS: LEVOFLOXACIN 500 MG/D5% WATER 100 ML IV SCH (12:56)
[2018-11-04] MEDS: HALOPERIDOL LACTATE 5 MG/ML VIAL IVP PRN ×2 (13:43→22:37)
[2018-11-04] MEDS ORDERED: SODIUM CHLORIDE 0.9% 250 ML IV ONE (14:32)
[2018-11-04 15:24] LABS: GLUCOSE,POINT OF CARE 143 MG/DL (70-110)
[2018-11-04] MEDS ORDERED: HEPARIN SODIUM,PORCINE 1,000 UNITS/ML VIAL ONE (17:35)
[2018-11-04 20:08] LABS: GLUCOSE,POINT OF CARE 188 MG/DL (70-110)
[2018-11-04] MEDS: ATORVASTATIN CALCIUM 10 MG TABLET PO SCH (21:07)
[2018-11-05] VITALS (10 sets, daily range): BP systolic 93–121; BP diastolic 48–69
[2018-11-05 01:25] LABS: C.DIFF GDH ANTIGEN, Stool Negative (Negative); C.DIFF TOXINS A&B, Stool Negative (Negative)
[2018-11-05] MEDS: PROPOFOL 1000 MG/ISO-OSM 100 ML IV PRN ×4 (03:24→23:58)
[2018-11-05] MEDS: MetroNIDAZOLE 500 MG/NACL 100 ML IV SCH ×3 (05:10→21:11)
[2018-11-05] MEDS: INSULIN LISPRO 100 UNITS/ML SQ PRN ×3 (05:11→17:44)
[2018-11-05 05:24] LABS: HEMATOCRIT 28.4 % (36-46); HEMOGLOBIN 9.6 g/dL (12.0-16.0); MEAN CORPUSCULAR HGB CONC 33.9 G/dL (31.0-37.0); MEAN CORPUSCULAR VOLUME 77 fL (80-100); PLATELET COUNT (AUTO) 114 K/uL (150-450); RED BLOOD CELL COUNT(AUTO) 3.69 MIL/uL (4.00-5.20); RED CELL DISTRIBUTION WIDTH 17.3 % (11.5-14.5)
[2018-11-05 05:48] LABS: ALBUMIN 2.6 g/dL (3.4-5.0); BILIRUBIN,TOTAL 0.8 mg/dL (0.1-1.0); CALCIUM, TOTAL 8.4 mg/dL (8.8-10.5); CREATININE 2.45 mg/dL (0.60-1.30); MAGNESIUM 1.7 mg/dL (1.80-2.40); POTASSIUM 3.4 mmol/L (3.5-5.1); TOTAL PROTEIN, SERUM 6.1 g/dL (6.4-8.2)
[2018-11-05] MEDS: DOCUSATE SODIUM 250 MG CAPSULE PO SCH ×3 (07:46→20:27)
[2018-11-05 07:50] LABS: PHOSPHORUS 3.9 mg/dL (2.5-4.9)
[2018-11-05] MEDS ORDERED: MAGNESIUM SULFATE 1 GM in DEXTROSE 5%-WATER 50 ML IV ONE (08:15)
[2018-11-05] MEDS ORDERED: POTASSIUM CHL 10 MEQ/WATER 50 ML IV ONE (08:15)
[2018-11-05 08:21] LABS: BAND NEUTROPHILS % (MANUAL) 19 % (0-5); LYMPHOCYTES % (MANUAL) 7 % (22-44); METAMYELOCYTES % 1 % (0-0); MONOCYTES % (MANUAL) 4 % (2-9); MYELOCYTES % 1 % (0-0); PLATELET MORPHOLOGY COMMENT GIANT PLTS PRESENT; SEGMENTED NEUTROPHILS % 68 % (40-70)
[2018-11-05] MEDS: CALCIUM OYSTER SHELL 500 MG TABLET PO SCH (08:34)
[2018-11-05] MEDS: BENZONATATE 100 MG CAPSULE PO SCH ×3 (08:34→20:26)
[2018-11-05] MEDS: METOPROLOL TARTRATE 25 MG TABLET PO SCH ×2 (08:34→20:26)
[2018-11-05] MEDS: ACARBOSE 50 MG TABLET PO SCH ×2 (08:34→17:33)
[2018-11-05] MEDS: CHOLECALCIFEROL (VIT D3) 1,000 UNITS TABLET PO SCH (08:34)
[2018-11-05] MEDS: PANTOPRAZOLE SODIUM 40 MG/VIAL IVP SCH (08:35)
[2018-11-05] MEDS: AMINO ACIDS/PROTEIN HYDROLYS 30 ML TUBE PO SCH ×3 (08:35→17:34)
[2018-11-05] MEDS: TIMOLOL MALEATE 0.25% 5 ML OPHTHALMIC SOLUTION OU SCH ×2 (08:35→20:26)
[2018-11-05] MEDS: MULTIVITAMINS, THERAPEUTIC 15 ML UDCUP NG SCH (09:00)
[2018-11-05] MEDS: HALOPERIDOL LACTATE 5 MG/ML VIAL IVP PRN (09:57)
[2018-11-05] MEDS: ALBUMIN HUMAN 25%-25GM/100ML 100 ML IV SCH ×2 (11:28→21:10)
[2018-11-05] MEDS: MORPHINE SULFATE 4 MG/ML SYRINGE IVP PRN (11:44)
[2018-11-05 12:20] LABS: GLUCOSE,POINT OF CARE 193 MG/DL (70-110)
[2018-11-05 12:20] LABS: GLUCOSE,POINT OF CARE 193 MG/DL (70-110)
[2018-11-05 12:20] LABS: GLUCOSE,POINT OF CARE 168 MG/DL (70-110)
[2018-11-05 14:49] LABS: POTASSIUM 3.8 mmol/L (3.5-5.1)
[2018-11-05 18:35] LABS: GLUCOSE,POINT OF CARE 179 MG/DL (70-110)
[2018-11-05 19:19] LABS: APPEARANCE,URINE TURBID (CLEAR); BILIRUBIN,URINE NEGATIVE (NEGATIVE); GLUCOSE, URINE (UA) NEGATIVE (NEGATIVE); KETONES,URINE NEGATIVE (NEGATIVE); LEUKOCYTE ESTERASE ,URINE LARGE (NEGATIVE); NITRATE,URINE NEGATIVE (NEGATIVE); OCCULT BLOOD,URINE LARGE (NEGATIVE); PROTEIN,URINE SEE CONFIRM (NEGATIVE); UROBILINOGEN,URINE 0.2 mg/dL (<=1.0)
[2018-11-05 19:42] LABS: BACTERIA,URINE Few /HPF (None Seen); RBC,URINE 26-50 /HPF (0-2); SQUAMOUS EPITHELIAL CELL,UR Few /LPF (None Seen); SULFOSALICYLIC ACID,URINE 3+ (Negative); WBC,URINE 51-100 /HPF (0-5); YEAST,URINE Many /HPF (None Seen)
[2018-11-05] MEDS: ATORVASTATIN CALCIUM 10 MG TABLET PO SCH (20:26)
[2018-11-05] MEDS: ACETAMINOPHEN 325 MG TABLET PO PRN (20:27)
[2018-11-05] MEDS ORDERED: SODIUM CHLORIDE 0.9% 250 ML IV ONE (21:05)
[2018-11-06] VITALS: BP 134/68
[2018-11-06] MEDS: INSULIN LISPRO 100 UNITS/ML SQ PRN ×3 (00:01→18:02)
[2018-11-06 00:53] LABS: GLUCOSE,POINT OF CARE 154 MG/DL (70-110)
[2018-11-06 04:00] VITALS: BP 141/75
[2018-11-06 04:39] LABS: HEMATOCRIT 27.2 % (36-46); HEMOGLOBIN 9.3 g/dL (12.0-16.0); MEAN CORPUSCULAR HEMOGLOBIN 26.1 pg (26.0-34.0); MEAN CORPUSCULAR VOLUME 77 fL (80-100); PLATELET COUNT (AUTO) 114 K/uL (150-450); RED BLOOD CELL COUNT(AUTO) 3.55 MIL/uL (4.00-5.20); RED CELL DISTRIBUTION WIDTH 17.9 % (11.5-14.5)
[2018-11-06 04:50] LABS: ALANINE AMINOTRANSFERASE 10 U/L (12-78); ALBUMIN 2.6 g/dL (3.4-5.0); ALKALINE PHOSPHATASE 121 U/L (46-116); ANION GAP 11 mmol/L (8-16); ASPARTATE AMINOTRANSFERASE 16 U/L (15-37); BILIRUBIN,TOTAL 0.7 mg/dL (0.1-1.0); CALCIUM, TOTAL 8.3 mg/dL (8.8-10.5); CARBON DIOXIDE 24 mmol/L (22-29); CHLORIDE 98 mmol/L (98-107); CREATININE 3.05 mg/dL (0.60-1.30); GLOMERULAR FILTR. RATE CALC 15 mL/min (>60); GLUCOSE,RANDOM 186 mg/dL (70-110); HDL CHOLESTEROL 6 mg/dL (40-60); PHOSPHORUS 5.3 mg/dL (2.5-4.9); POTASSIUM 3.6 mmol/L (3.5-5.1); SODIUM SERUM 133 mmol/L (136-145); TRIGLYCERIDES 178 mg/dL (15-150); UREA NITROGEN, BLOOD 71 mg/dL (7-18)
[2018-11-06 04:58] LABS: BAND NEUTROPHILS % (MANUAL) 14 % (0-5); BASOPHILS % (MANUAL) 1 % (0-2); LYMPHOCYTES % (MANUAL) 2 % (22-44); METAMYELOCYTES % 1 % (0-0); MONOCYTES % (MANUAL) 4 % (2-9); MYELOCYTES % 1 % (0-0); PLATELET MORPHOLOGY COMMENT GIANT PLTS PRESENT; SEGMENTED NEUTROPHILS % 77 % (40-70)
[2018-11-06] MEDS: MetroNIDAZOLE 500 MG/NACL 100 ML IV SCH ×3 (05:01→21:09)
[2018-11-06] MEDS: PROPOFOL 1000 MG/ISO-OSM 100 ML IV PRN ×3 (05:02→20:11)
[2018-11-06 06:09] LABS: GLUCOSE,POINT OF CARE 165 MG/DL (70-110)
[2018-11-06 06:15] LABS: CHOL/HDL RATIO 8.3 (3.9-5.7); CHOLESTEROL < 50 mg/dL (131-200); LDL CHOL (CALC.) 8 mg/dL (0-130)
[2018-11-06 08:00] VITALS: BP 145/76
[2018-11-06] MEDS: APIXABAN 2.5 MG TABLET PO SCH ×2 (08:35→20:51)
[2018-11-06] MEDS: AMINO ACIDS/PROTEIN HYDROLYS 30 ML TUBE PO SCH ×3 (08:35→17:33)
[2018-11-06] MEDS: PANTOPRAZOLE SODIUM 40 MG/VIAL IVP SCH (08:36)
[2018-11-06] MEDS: CALCIUM OYSTER SHELL 500 MG TABLET PO SCH (08:36)
[2018-11-06] MEDS: CHOLECALCIFEROL (VIT D3) 1,000 UNITS TABLET PO SCH (08:36)
[2018-11-06] MEDS: TIMOLOL MALEATE 0.25% 5 ML OPHTHALMIC SOLUTION OU SCH ×2 (08:39→20:50)
[2018-11-06] MEDS: METOPROLOL TARTRATE 25 MG TABLET PO SCH ×2 (08:39→20:51)
[2018-11-06] MEDS: LACTOBACILLUS ACIDOPHILUS/BULGARICUS GRANULES PACKET GT SCH ×2 (09:00→20:50)
[2018-11-06] MEDS: ASCORBIC ACID 500 MG TABLET GT SCH ×2 (09:00→20:50)
[2018-11-06] MEDS: HALOPERIDOL LACTATE 5 MG/ML VIAL IVP PRN (10:49)
[2018-11-06 11:54] LABS: GLUCOSE,POINT OF CARE 135 MG/DL (70-110)
[2018-11-06 12:00] VITALS: BP 147/78
[2018-11-06] MEDS: FUROSEMIDE 40 MG/4 ML VIAL IVP SCH ×2 (13:16→20:52)
[2018-11-06] MEDS: LEVOFLOXACIN 500 MG/D5% WATER 100 ML IV SCH (13:16)
[2018-11-06 16:00] VITALS: BP 148/68
[2018-11-06 20:00] VITALS: BP 133/73
[2018-11-06] MEDS ORDERED: SODIUM CHLORIDE 0.9% 250 ML IV ONE (20:47)
[2018-11-06] MEDS: ACETAMINOPHEN 325 MG TABLET PO PRN (20:51)
[2018-11-06 21:09] LABS: GLUCOSE,POINT OF CARE 173 MG/DL (70-110)
[2018-11-07] VITALS: BP 130/64
[2018-11-07] MEDS: INSULIN LISPRO 100 UNITS/ML SQ PRN ×3 (00:13→12:27)
[2018-11-07] MEDS: PROPOFOL 1000 MG/ISO-OSM 100 ML IV PRN ×3 (00:14→09:34)
[2018-11-07 04:00] VITALS: BP 122/58
[2018-11-07 04:45] LABS: HEMATOCRIT 28.1 % (36-46); HEMOGLOBIN 9.7 g/dL (12.0-16.0); MEAN CORPUSCULAR HEMOGLOBIN 26.6 pg (26.0-34.0); MEAN CORPUSCULAR HGB CONC 34.6 G/dL (31.0-37.0); MEAN CORPUSCULAR VOLUME 77 fL (80-100); PLATELET COUNT (AUTO) 121 K/uL (150-450); RED BLOOD CELL COUNT(AUTO) 3.65 MIL/uL (4.00-5.20)
[2018-11-07 05:00] LABS: ALBUMIN 2.2 g/dL (3.4-5.0); BILIRUBIN,TOTAL 0.6 mg/dL (0.1-1.0); CALCIUM, TOTAL 8.4 mg/dL (8.8-10.5); CREATININE 2.35 mg/dL (0.60-1.30); MAGNESIUM 1.5 mg/dL (1.80-2.40); POTASSIUM 3.5 mmol/L (3.5-5.1)
[2018-11-07 05:08] LABS: BAND NEUTROPHILS % (MANUAL) 30 % (0-5); LYMPHOCYTES % (MANUAL) 4 % (22-44); MONOCYTES % (MANUAL) 7 % (2-9); SEGMENTED NEUTROPHILS % 59 % (40-70)
[2018-11-07 05:09] LABS: PLATELET MORPHOLOGY COMMENT GIANT PLTS PRESENT
[2018-11-07 05:10] LABS: % IRON SATURATION 12.5 % (22-44)
[2018-11-07] MEDS: MetroNIDAZOLE 500 MG/NACL 100 ML IV SCH ×3 (05:22→22:17)
[2018-11-07 06:15] LABS: GLUCOSE,POINT OF CARE 187 MG/DL (70-110)
[2018-11-07 06:15] LABS: GLUCOSE,POINT OF CARE 197 MG/DL (70-110)
[2018-11-07 06:24] LABS: PHOSPHORUS 4.3 mg/dL (2.5-4.9)
[2018-11-07 08:00] VITALS: BP 122/71
[2018-11-07] MEDS: APIXABAN 2.5 MG TABLET PO SCH (08:09)
[2018-11-07] MEDS: AMINO ACIDS/PROTEIN HYDROLYS 30 ML TUBE PO SCH ×3 (08:40→21:04)
[2018-11-07] MEDS: LACTOBACILLUS ACIDOPHILUS/BULGARICUS GRANULES PACKET GT SCH ×2 (08:41→21:00)
[2018-11-07] MEDS: CHOLECALCIFEROL (VIT D3) 1,000 UNITS TABLET PO SCH (08:41)
[2018-11-07] MEDS: CALCIUM OYSTER SHELL 500 MG TABLET PO SCH (08:41)
[2018-11-07] MEDS: METOPROLOL TARTRATE 25 MG TABLET PO SCH ×2 (08:41→21:00)
[2018-11-07] MEDS: ASCORBIC ACID 500 MG TABLET GT SCH ×2 (08:42→21:01)
[2018-11-07] MEDS: FUROSEMIDE 40 MG/4 ML VIAL IVP SCH ×2 (08:42→21:01)
[2018-11-07] MEDS: EPOETIN ALFA 10,000 UNITS/ML VIAL SQ SCH (08:42)
[2018-11-07] MEDS: PANTOPRAZOLE SODIUM 40 MG/VIAL IVP SCH (08:42)
[2018-11-07] MEDS: TIMOLOL MALEATE 0.25% 5 ML OPHTHALMIC SOLUTION OU SCH ×2 (08:44→21:05)
[2018-11-07] MEDS ORDERED: MAGNESIUM SULFATE 2 GM in DEXTROSE 5%-WATER 50 ML IV ONE (10:00)
[2018-11-07] MEDS: SOD FERRIC GLUC COMPLX/SUCROSE 125 MG in SODIUM CHLORIDE 0.9% 100 ML IV SCH (11:50)
[2018-11-07 12:00] VITALS: BP 124/84
[2018-11-07 14:09] LABS: GLUCOSE,POINT OF CARE 162 MG/DL (70-110)
[2018-11-07 16:00] VITALS: BP 118/60
[2018-11-07 19:14] LABS: GLUCOSE,POINT OF CARE 146 MG/DL (70-110)
[2018-11-07 20:00] VITALS: BP 147/79
[2018-11-07] MEDS ORDERED: SODIUM CHLORIDE 0.9% 250 ML IV ONE (23:49)
[2018-11-08] VITALS: BP 128/63
[2018-11-08] MEDS: INSULIN LISPRO 100 UNITS/ML SQ PRN ×4 (00:21→17:56)
[2018-11-08] MEDS: PROPOFOL 1000 MG/ISO-OSM 100 ML IV PRN ×3 (01:14→15:25)
[2018-11-08 04:00] VITALS: BP 113/70
[2018-11-08 05:00] LABS: HEMATOCRIT 28.6 % (36-46); HEMOGLOBIN 9.5 g/dL (12.0-16.0); MEAN CORPUSCULAR HEMOGLOBIN 25.7 pg (26.0-34.0); MEAN CORPUSCULAR HGB CONC 33.3 G/dL (31.0-37.0); MEAN CORPUSCULAR VOLUME 77 fL (80-100); PLATELET COUNT (AUTO) 152 K/uL (150-450); RED CELL DISTRIBUTION WIDTH 18.3 % (11.5-14.5)
[2018-11-08 05:13] LABS: ALBUMIN 2.1 g/dL (3.4-5.0); BILIRUBIN,TOTAL 0.6 mg/dL (0.1-1.0); CALCIUM, TOTAL 8.5 mg/dL (8.8-10.5); CREATININE 2.87 mg/dL (0.60-1.30); PHOSPHORUS 6.2 mg/dL (2.5-4.9); POTASSIUM 3.5 mmol/L (3.5-5.1)
[2018-11-08 05:15] LABS: PLATELET MORPHOLOGY COMMENT GIANT PLTS PRESENT
[2018-11-08 05:18] LABS: BAND NEUTROPHILS % (MANUAL) 19 % (0-5); BASOPHILS % (MANUAL) 1 % (0-2); EOSINOPHILS % (MANUAL) 1 % (1-6); LYMPHOCYTES % (MANUAL) 7 % (22-44); MONOCYTES % (MANUAL) 5 % (2-9); SEGMENTED NEUTROPHILS % 67 % (40-70)
[2018-11-08] MEDS: MetroNIDAZOLE 500 MG/NACL 100 ML IV SCH ×3 (06:06→22:21)
[2018-11-08 06:49] LABS: GLUCOSE,POINT OF CARE 151 MG/DL (70-110)
[2018-11-08 07:29] LABS: GLUCOSE,POINT OF CARE 151 MG/DL (70-110)
[2018-11-08 08:00] VITALS: BP 118/67
[2018-11-08] MEDS: LACTOBACILLUS ACIDOPHILUS/BULGARICUS GRANULES PACKET GT SCH ×2 (08:40→20:47)
[2018-11-08] MEDS: ASCORBIC ACID 500 MG TABLET GT SCH ×2 (08:40→20:48)
[2018-11-08] MEDS: PANTOPRAZOLE SODIUM 40 MG/VIAL IVP SCH (08:41)
[2018-11-08] MEDS: FUROSEMIDE 40 MG/4 ML VIAL IVP SCH ×2 (08:41→20:48)
[2018-11-08] MEDS: METOPROLOL TARTRATE 25 MG TABLET PO SCH ×2 (08:41→20:48)
[2018-11-08] MEDS: CHOLECALCIFEROL (VIT D3) 1,000 UNITS TABLET PO SCH (08:41)
[2018-11-08] MEDS: CALCIUM OYSTER SHELL 500 MG TABLET PO SCH (08:41)
[2018-11-08] MEDS: ACETAMINOPHEN 325 MG TABLET PO PRN (08:42)
[2018-11-08] MEDS: AMINO ACIDS/PROTEIN HYDROLYS 30 ML TUBE PO SCH ×2 (08:43→20:48)
[2018-11-08] MEDS: TIMOLOL MALEATE 0.25% 5 ML OPHTHALMIC SOLUTION OU SCH ×2 (08:43→20:48)
[2018-11-08] MEDS: SOD FERRIC GLUC COMPLX/SUCROSE 125 MG in SODIUM CHLORIDE 0.9% 100 ML IV SCH (09:29)
[2018-11-08 12:00] VITALS: BP 128/101
[2018-11-08 12:59] LABS: GLUCOSE,POINT OF CARE 157 MG/DL (70-110)
[2018-11-08] MEDS: LEVOFLOXACIN 500 MG/D5% WATER 100 ML IV SCH (13:11)
[2018-11-08 16:00] VITALS: BP 115/62
[2018-11-08] MEDS ORDERED: HEPARIN SODIUM,PORCINE 1,000 UNITS/ML VIAL IVP ONE (18:18)
[2018-11-08 20:00] VITALS: BP 123/71
[2018-11-08 21:14] LABS: GLUCOSE,POINT OF CARE 148 MG/DL (70-110)
[2018-11-09] VITALS (8 sets, daily range): BP systolic 108–170; BP diastolic 63–93
[2018-11-09] MEDS: INSULIN LISPRO 100 UNITS/ML SQ PRN ×3 (00:16→17:02)
[2018-11-09] MEDS: ACETAMINOPHEN 325 MG TABLET PO PRN ×3 (00:59→23:00)
[2018-11-09] MEDS: PROPOFOL 1000 MG/ISO-OSM 100 ML IV PRN ×2 (02:41→16:41)
[2018-11-09] MEDS: LORazepam 2 MG/ML VIAL IVP PRN ×3 (02:58→06:30)
[2018-11-09 03:10] LABS: GLUCOSE,POINT OF CARE 178 MG/DL (70-110)
[2018-11-09 04:39] LABS: HEMATOCRIT 29.2 % (36-46); HEMOGLOBIN 9.8 g/dL (12.0-16.0); MEAN CORPUSCULAR HEMOGLOBIN 25.5 pg (26.0-34.0); MEAN CORPUSCULAR HGB CONC 33.4 G/dL (31.0-37.0); MEAN CORPUSCULAR VOLUME 77 fL (80-100); PLATELET COUNT (AUTO) 171 K/uL (150-450); RED BLOOD CELL COUNT(AUTO) 3.82 MIL/uL (4.00-5.20); RED CELL DISTRIBUTION WIDTH 18.1 % (11.5-14.5)
[2018-11-09 05:00] LABS: CALCIUM, TOTAL 8.1 mg/dL (8.8-10.5); CREATININE 2.94 mg/dL (0.60-1.30); MAGNESIUM 1.9 mg/dL (1.80-2.40); PHOSPHORUS 6.9 mg/dL (2.5-4.9); POTASSIUM 3.6 mmol/L (3.5-5.1)
[2018-11-09] MEDS: MetroNIDAZOLE 500 MG/NACL 100 ML IV SCH ×3 (06:02→21:23)
[2018-11-09 06:18] LABS: GLUCOSE,POINT OF CARE 155 MG/DL (70-110)
[2018-11-09 07:06] LABS: BAND NEUTROPHILS % (MANUAL) 15 % (0-5); EOSINOPHILS % (MANUAL) 1 % (1-6); LYMPHOCYTES % (MANUAL) 9 % (22-44); MONOCYTES % (MANUAL) 3 % (2-9); SEGMENTED NEUTROPHILS % 72 % (40-70)
[2018-11-09] MEDS ORDERED: SODIUM CHLORIDE 0.9% 250 ML IV ONE ×2 (07:30→20:34)
[2018-11-09] MEDS: LACTOBACILLUS ACIDOPHILUS/BULGARICUS GRANULES PACKET GT SCH ×2 (08:11→21:21)
[2018-11-09] MEDS: CHOLECALCIFEROL (VIT D3) 1,000 UNITS TABLET PO SCH (08:12)
[2018-11-09] MEDS: METOPROLOL TARTRATE 25 MG TABLET PO SCH ×2 (08:12→21:21)
[2018-11-09] MEDS: CALCIUM OYSTER SHELL 500 MG TABLET PO SCH (08:12)
[2018-11-09] MEDS: ASCORBIC ACID 500 MG TABLET GT SCH ×2 (08:12→21:22)
[2018-11-09] MEDS: PANTOPRAZOLE SODIUM 40 MG/VIAL IVP SCH (08:13)
[2018-11-09] MEDS: FUROSEMIDE 40 MG/4 ML VIAL IVP SCH (08:13)
[2018-11-09] MEDS: MORPHINE SULFATE 4 MG/ML SYRINGE IVP PRN (08:14)
[2018-11-09] MEDS: TIMOLOL MALEATE 0.25% 5 ML OPHTHALMIC SOLUTION OU SCH ×2 (08:33→21:22)
[2018-11-09] MEDS: AMINO ACIDS/PROTEIN HYDROLYS 30 ML TUBE PO SCH ×2 (08:33→21:22)
[2018-11-09] MEDS: SOD FERRIC GLUC COMPLX/SUCROSE 125 MG in SODIUM CHLORIDE 0.9% 100 ML IV SCH (09:26)
[2018-11-09 14:14] LABS: GLUCOSE,POINT OF CARE 138 MG/DL (70-110)
[2018-11-09 17:19] LABS: GLUCOSE,POINT OF CARE 157 MG/DL (70-110)
[2018-11-09] MEDS ORDERED: HEPARIN SODIUM,PORCINE 1,000 UNITS/ML VIAL ONE (17:53)
[2018-11-10] VITALS (7 sets, daily range): BP systolic 115–140; BP diastolic 67–86
[2018-11-10] MEDS: PROPOFOL 1000 MG/ISO-OSM 100 ML IV PRN ×4 (00:06→23:54)
[2018-11-10] MEDS: INSULIN LISPRO 100 UNITS/ML SQ PRN ×2 (00:09→06:12)
[2018-11-10 05:00] LABS: HEMATOCRIT 28.4 % (36-46); HEMOGLOBIN 9.4 g/dL (12.0-16.0); MEAN CORPUSCULAR HEMOGLOBIN 25.6 pg (26.0-34.0); MEAN CORPUSCULAR VOLUME 77 fL (80-100); PLATELET COUNT (AUTO) 171 K/uL (150-450); RED BLOOD CELL COUNT(AUTO) 3.67 MIL/uL (4.00-5.20); RED CELL DISTRIBUTION WIDTH 18.3 % (11.5-14.5)
[2018-11-10 05:15] LABS: ALBUMIN 1.9 g/dL (3.4-5.0); BILIRUBIN,TOTAL 0.5 mg/dL (0.1-1.0); CALCIUM, TOTAL 8.3 mg/dL (8.8-10.5); CREATININE 2.04 mg/dL (0.60-1.30); MAGNESIUM 1.6 mg/dL (1.80-2.40); PHOSPHORUS 4.7 mg/dL (2.5-4.9); POTASSIUM 3.4 mmol/L (3.5-5.1); TOTAL PROTEIN, SERUM 6.5 g/dL (6.4-8.2)
[2018-11-10 05:49] LABS: GLUCOSE,POINT OF CARE 229 MG/DL (70-110)
[2018-11-10 05:49] LABS: GLUCOSE,POINT OF CARE 155 MG/DL (70-110)
[2018-11-10] MEDS: MetroNIDAZOLE 500 MG/NACL 100 ML IV SCH ×3 (06:11→21:59)
[2018-11-10] MEDS ORDERED: AMINO ACIDS/PROTEIN HYDROLYS 30 ML TUBE PO SCH (08:00)
[2018-11-10 08:02] LABS: INR 1.3 (0.9-1.1)
[2018-11-10] MEDS ORDERED: POTASSIUM CHLORIDE 10 MEQ ER TABLET PO ONE (08:30)
[2018-11-10] MEDS ORDERED: MAGNESIUM SULFATE 1 GM in DEXTROSE 5%-WATER 50 ML IV ONE (08:30)
[2018-11-10] MEDS: LACTOBACILLUS ACIDOPHILUS/BULGARICUS GRANULES PACKET GT SCH ×2 (09:00→20:18)
[2018-11-10] MEDS: METOPROLOL TARTRATE 25 MG TABLET PO SCH ×2 (09:00→20:19)
[2018-11-10] MEDS: CHOLECALCIFEROL (VIT D3) 1,000 UNITS TABLET PO SCH (09:00)
[2018-11-10] MEDS: ASCORBIC ACID 500 MG TABLET GT SCH ×2 (09:00→20:19)
[2018-11-10] MEDS: CALCIUM OYSTER SHELL 500 MG TABLET PO SCH (09:00)
[2018-11-10 09:52] LABS: BAND NEUTROPHILS % (MANUAL) 10 % (0-5); LYMPHOCYTES % (MANUAL) 10 % (22-44); MONOCYTES % (MANUAL) 6 % (2-9); SEGMENTED NEUTROPHILS % 74 % (40-70)
[2018-11-10] MEDS ORDERED: SODIUM CHLORIDE 0.9% 1,000 ML IV ONE (10:24)
[2018-11-10] MEDS: PANTOPRAZOLE SODIUM 40 MG/VIAL IVP SCH (12:30)
[2018-11-10] MEDS: SOD FERRIC GLUC COMPLX/SUCROSE 125 MG in SODIUM CHLORIDE 0.9% 100 ML IV SCH (12:30)
[2018-11-10] MEDS: EPOETIN ALFA 10,000 UNITS/ML VIAL SQ SCH (12:30)
[2018-11-10] MEDS: TIMOLOL MALEATE 0.25% 5 ML OPHTHALMIC SOLUTION OU SCH ×2 (12:31→20:18)
[2018-11-10 15:19] LABS: GLUCOSE,POINT OF CARE 161 MG/DL (70-110)
[2018-11-10] MEDS: LEVOFLOXACIN 500 MG/D5% WATER 100 ML IV SCH (16:50)
[2018-11-10 18:34] LABS: GLUCOSE,POINT OF CARE 156 MG/DL (70-110)
[2018-11-10] MEDS: MORPHINE SULFATE 4 MG/ML SYRINGE IVP PRN (18:47)
[2018-11-10] MEDS ORDERED: SODIUM CHLORIDE 0.9% 250 ML IV ONE (20:10)
[2018-11-11] VITALS (8 sets, daily range): BP systolic 118–155; BP diastolic 66–96
[2018-11-11 00:09] LABS: GLUCOSE,POINT OF CARE 154 MG/DL (70-110)
[2018-11-11] MEDS: PROPOFOL 1000 MG/ISO-OSM 100 ML IV PRN ×4 (04:20→23:58)
[2018-11-11] MEDS ORDERED: MIDAZOLAM HCL 2 MG/2 ML VIAL IVP ONE (05:09)
[2018-11-11] MEDS ORDERED: 0.9% SODIUM CHLORIDE 10 ML VIAL IVP ONE (05:09)
[2018-11-11] MEDS ORDERED: EPHEDrine SULFATE 50 MG/ML VIAL IM ONE (05:09)
[2018-11-11] MEDS ORDERED: ROCURONIUM BROMIDE 10 MG/ML 5 ML VIAL IVP ONE (05:09)
[2018-11-11] MEDS ORDERED: ESMOLOL HCL 10 MG/ML 10 ML VIAL IVP ONE (05:09)
[2018-11-11] MEDS ORDERED: FentaNYL CITRATE-PF 100 MCG/2 ML VIAL IVP ONE (05:09)
[2018-11-11] MEDS ORDERED: PROPOFOL 1% 20 ML VIAL IVP ONE (05:09)
[2018-11-11] MEDS ORDERED: PHENYLEPHRINE HCL 10 MG/ML VIAL IVP ONE (05:09)
[2018-11-11 05:14] LABS: GLUCOSE,POINT OF CARE 159 MG/DL (70-110)
[2018-11-11 05:31] LABS: HEMATOCRIT 28.5 % (36-46); HEMOGLOBIN 9.4 g/dL (12.0-16.0); MEAN CORPUSCULAR HEMOGLOBIN 25.4 pg (26.0-34.0); MEAN CORPUSCULAR VOLUME 77 fL (80-100); PLATELET COUNT (AUTO) 171 K/uL (150-450); RED BLOOD CELL COUNT(AUTO) 3.71 MIL/uL (4.00-5.20); RED CELL DISTRIBUTION WIDTH 18.2 % (11.5-14.5)
[2018-11-11] MEDS: MetroNIDAZOLE 500 MG/NACL 100 ML IV SCH ×3 (05:32→21:00)
[2018-11-11 05:40] LABS: INR 1.3 (0.9-1.1)
[2018-11-11 06:00] LABS: ALBUMIN 1.8 g/dL (3.4-5.0); BILIRUBIN,TOTAL 0.4 mg/dL (0.1-1.0); CALCIUM, TOTAL 8.2 mg/dL (8.8-10.5); CREATININE 2.18 mg/dL (0.60-1.30); MAGNESIUM 1.8 mg/dL (1.80-2.40); PHOSPHORUS 5.5 mg/dL (2.5-4.9); POTASSIUM 3.3 mmol/L (3.5-5.1); TOTAL PROTEIN, SERUM 6.2 g/dL (6.4-8.2)
[2018-11-11 06:57] LABS: BAND NEUTROPHILS % (MANUAL) 4 % (0-5); EOSINOPHILS % (MANUAL) 2 % (1-6); LYMPHOCYTES % (MANUAL) 11 % (22-44); METAMYELOCYTES % 1 % (0-0); MONOCYTES % (MANUAL) 7 % (2-9); SEGMENTED NEUTROPHILS % 75 % (40-70)
[2018-11-11] MEDS: MORPHINE SULFATE 4 MG/ML SYRINGE IVP PRN ×2 (07:39→16:34)
[2018-11-11] MEDS ORDERED: CeFAZolin 2 GM/DEXTROSE 50 ML IV ONE (09:00)
[2018-11-11] MEDS: ASCORBIC ACID 500 MG TABLET GT SCH ×2 (09:00→20:58)
[2018-11-11] MEDS: CHOLECALCIFEROL (VIT D3) 1,000 UNITS TABLET PO SCH (09:00)
[2018-11-11] MEDS: CALCIUM OYSTER SHELL 500 MG TABLET PO SCH (09:00)
[2018-11-11] MEDS: LACTOBACILLUS ACIDOPHILUS/BULGARICUS GRANULES PACKET GT SCH ×2 (09:00→20:58)
[2018-11-11] MEDS: METOPROLOL TARTRATE 25 MG TABLET PO SCH ×2 (09:00→20:58)
[2018-11-11] MEDS: TIMOLOL MALEATE 0.25% 5 ML OPHTHALMIC SOLUTION OU SCH ×2 (09:55→20:59)
[2018-11-11] MEDS: POTASSIUM CHL 10 MEQ/WATER 50 ML IV SCH ×2 (09:55→10:03)
[2018-11-11] MEDS: PANTOPRAZOLE SODIUM 40 MG/VIAL IVP SCH (10:02)
[2018-11-11] MEDS: SOD FERRIC GLUC COMPLX/SUCROSE 125 MG in SODIUM CHLORIDE 0.9% 100 ML IV SCH (10:03)
[2018-11-11] MEDS ORDERED: HEPARIN SODIUM 1000 UNITS/NS 500 ML ONE (10:24)
[2018-11-11] MEDS ORDERED: LIDOCAINE/PF 1% 5 ML VIAL ONE (10:24)
[2018-11-11] MEDS ORDERED: HEPARIN SODIUM,PORCINE 1,000 UNITS/ML 10 ML VIAL ONE (10:24)
[2018-11-11] MEDS ORDERED: HEPARIN SODIUM,PORCINE 1,000 UNITS/ML VIAL IVP ONE (13:14)
[2018-11-11 15:29] LABS: GLUCOSE,POINT OF CARE 164 MG/DL (70-110)
[2018-11-11] MEDS ORDERED: SODIUM CHLORIDE 0.9% 500 ML IV ONE (15:37)
[2018-11-11] MEDS ORDERED: DIGOXIN 250 MCG/ML 2 ML AMP ONE (16:54)
[2018-11-11] MEDS ORDERED: DIGOXIN 250 MCG/ML 2 ML AMP IVP ONE (17:00)
[2018-11-11] MEDS ORDERED: METOPROLOL TARTRATE 25 MG TABLET PO ONE (17:00)
[2018-11-11] MEDS ORDERED: SODIUM CHLORIDE 0.9% 1,000 ML IV ONE (18:08)
[2018-11-11 18:38] LABS: GLUCOSE,POINT OF CARE 121 MG/DL (70-110)
[2018-11-11] MEDS ORDERED: SODIUM CHLORIDE 0.9% 250 ML IV ONE (20:42)
[2018-11-11] MEDS: INSULIN LISPRO 100 UNITS/ML SQ PRN (23:54)
[2018-11-12] VITALS: BP 127/70
[2018-11-12 01:19] VITALS: BP 155/74
[2018-11-12] MEDS: MORPHINE SULFATE 4 MG/ML SYRINGE IVP PRN (01:19)
[2018-11-12 01:34] VITALS: BP 163/73
[2018-11-12 02:37] LABS: GLUCOSE,POINT OF CARE 154 MG/DL (70-110)
[2018-11-12 04:00] VITALS: BP 139/67
[2018-11-12 04:56] LABS: HEMOGLOBIN 9.8 g/dL (12.0-16.0); MEAN CORPUSCULAR HEMOGLOBIN 25.2 pg (26.0-34.0); MEAN CORPUSCULAR HGB CONC 32.6 G/dL (31.0-37.0); MEAN CORPUSCULAR VOLUME 77 fL (80-100); PLATELET COUNT (AUTO) 162 K/uL (150-450); RED BLOOD CELL COUNT(AUTO) 3.89 MIL/uL (4.00-5.20); RED CELL DISTRIBUTION WIDTH 18.4 % (11.5-14.5)
[2018-11-12 05:09] LABS: ALBUMIN 1.8 g/dL (3.4-5.0); BILIRUBIN,TOTAL 0.5 mg/dL (0.1-1.0); CREATININE 1.8 mg/dL (0.60-1.30); MAGNESIUM 1.6 mg/dL (1.80-2.40); POTASSIUM 3.4 mmol/L (3.5-5.1); TOTAL PROTEIN, SERUM 6.4 g/dL (6.4-8.2)
[2018-11-12] MEDS ORDERED: PROPOFOL 1% 20 ML VIAL IVP ONE (05:32)
[2018-11-12] MEDS ORDERED: LIDOCAINE/PF 2% 5 ML VIAL IM ONE (05:32)
[2018-11-12 05:34] LABS: BAND NEUTROPHILS % (MANUAL) 31 % (0-5); BASOPHILS % (MANUAL) 2 % (0-2); EOSINOPHILS % (MANUAL) 5 % (1-6); LYMPHOCYTES % (MANUAL) 6 % (22-44); METAMYELOCYTES % 2 % (0-0); MONOCYTES % (MANUAL) 9 % (2-9); MYELOCYTES % 3 % (0-0); PLATELET MORPHOLOGY COMMENT GIANT PLTS PRESENT; SEGMENTED NEUTROPHILS % 42 % (40-70)
[2018-11-12] MEDS: MetroNIDAZOLE 500 MG/NACL 100 ML IV SCH (05:38)
[2018-11-12] MEDS: PROPOFOL 1000 MG/ISO-OSM 100 ML IV PRN (05:39)
[2018-11-12 06:15] LABS: GLUCOSE,POINT OF CARE 123 MG/DL (70-110)
[2018-11-12 08:00] VITALS: BP 124/66
[2018-11-12] MEDS: LACTOBACILLUS ACIDOPHILUS/BULGARICUS GRANULES PACKET GT SCH (08:01)
[2018-11-12] MEDS: EPOETIN ALFA 10,000 UNITS/ML VIAL SQ SCH (08:01)
[2018-11-12] MEDS: PANTOPRAZOLE SODIUM 40 MG/VIAL IVP SCH (08:02)
[2018-11-12] MEDS: TIMOLOL MALEATE 0.25% 5 ML OPHTHALMIC SOLUTION OU SCH (08:02)
[2018-11-12] MEDS: CHOLECALCIFEROL (VIT D3) 1,000 UNITS TABLET PO SCH (08:02)
[2018-11-12] MEDS: CALCIUM OYSTER SHELL 500 MG TABLET PO SCH (08:03)
[2018-11-12] MEDS ORDERED: METOPROLOL TARTRATE 25 MG TABLET PO SCH (09:00)
[2018-11-12] MEDS ORDERED: POTASSIUM CHL 10 MEQ/WATER 50 ML IV ONE (09:00)
[2018-11-12] MEDS ORDERED: APIXABAN 2.5 MG TABLET PO SCH ×2 (09:00)
[2018-11-12] MEDS: SOD FERRIC GLUC COMPLX/SUCROSE 125 MG in SODIUM CHLORIDE 0.9% 100 ML IV SCH (09:46)
[2018-11-12] MEDS: INSULIN LISPRO 100 UNITS/ML SQ PRN (11:57)
[2018-11-12 12:00] VITALS: BP 156/72
[2018-11-12 19:44] LABS: GLUCOSE,POINT OF CARE 172 MG/DL (70-110)
== END 2018-11-12 13:15 | DRG 4 ==
LOC: EMS 10:52 → ICU 15:39
PROVIDERS: ADMIT Internal Medicine; ATTEND Internal Medicine
PROC: 5A1955Z Respiratory Ventilation, Greater than 96 Consecutive Hours (ICD-10-PCS; principal; 2018-10-30)
PROC: 0BH17EZ Insertion of Endotracheal Airway into Trachea, Via Natural or Artificial Opening (ICD-10-PCS; 2018-10-30)
PROC: 05HM33Z Insertion of Infusion Device into Right Internal Jugular Vein, Percutaneous Approach (ICD-10-PCS; 2018-10-30)
PROC: B543ZZA Ultrasonography of Right Jugular Veins, Guidance (ICD-10-PCS; 2018-10-30)
PROC: 04HK33Z Insertion of Infusion Device into Right Femoral Artery, Percutaneous Approach (ICD-10-PCS; 2018-10-30)
PROC: B44LZZZ Ultrasonography of Femoral Artery (ICD-10-PCS; 2018-10-30)
PROC: 05HY33Z Insertion of Infusion Device into Upper Vein, Percutaneous Approach (ICD-10-PCS; 2018-11-03)
PROC: B54MZZA Ultrasonography of Right Upper Extremity Veins, Guidance (ICD-10-PCS; 2018-11-03)
PROC: 30233N1 Transfusion of Nonautologous Red Blood Cells into Peripheral Vein, Percutaneous Approach (ICD-10-PCS; 2018-11-04)
PROC: 0B113F4 Bypass Trachea to Cutaneous with Tracheostomy Device, Percutaneous Approach (ICD-10-PCS; 2018-11-10)
PROC: 0DH63UZ Insertion of Feeding Device into Stomach, Percutaneous Approach (ICD-10-PCS; 2018-11-11)
PROC: 0JH63XZ Insertion of Tunneled Vascular Access Device into Chest Subcutaneous Tissue and Fascia, Percutaneous Approach (ICD-10-PCS; 2018-11-11)
PROC: 05HM33Z Insertion of Infusion Device into Right Internal Jugular Vein, Percutaneous Approach (ICD-10-PCS; 2018-11-11)
PROC: B543ZZA Ultrasonography of Right Jugular Veins, Guidance (ICD-10-PCS; 2018-11-11)
DX: A41.59 Other Gram-negative sepsis (principal); I46.9 Cardiac arrest, cause unspecified; J15.0 Pneumonia due to Klebsiella pneumoniae; J69.0 Pneumonitis due to inhalation of food and vomit; J96.00 Acute respiratory failure, unspecified whether with hypoxia or hypercapnia; N17.0 Acute kidney failure with tubular necrosis; R65.21 Severe sepsis with septic shock; N39.0 Urinary tract infection, site not specified; E87.1 Hypo-osmolality and hyponatremia; I13.0 Hypertensive heart and chronic kidney disease with heart failure and stage 1 through stage 4 chronic kidney disease, or unspecified chronic kidney disease; G93.40 Encephalopathy, unspecified; I48.92 Unspecified atrial flutter; I50.32 Chronic diastolic (congestive) heart failure; J44.0 Chronic obstructive pulmonary disease with (acute) lower respiratory infection; E86.0 Dehydration; N18.3 Chronic kidney disease, stage 3 (moderate); J84.10 Pulmonary fibrosis, unspecified; B96.1 Klebsiella pneumoniae [K. pneumoniae] as the cause of diseases classified elsewhere; D64.9 Anemia, unspecified; D69.6 Thrombocytopenia, unspecified; E11.22 Type 2 diabetes mellitus with diabetic chronic kidney disease; E78.00 Pure hypercholesterolemia, unspecified; E78.5 Hyperlipidemia, unspecified; E83.42 Hypomagnesemia; E87.6 Hypokalemia; H40.9 Unspecified glaucoma; I25.10 Atherosclerotic heart disease of native coronary artery without angina pectoris; I44.0 Atrioventricular block, first degree; I45.10 Unspecified right bundle-branch block; I48.0 Paroxysmal atrial fibrillation; K76.89 Other specified diseases of liver; K80.20 Calculus of gallbladder without cholecystitis without obstruction; M81.0 Age-related osteoporosis without current pathological fracture; N28.1 Cyst of kidney, acquired; N81.4 Uterovaginal prolapse, unspecified; R62.7 Adult failure to thrive; R79.1 Abnormal coagulation profile; Z79.01 Long term (current) use of anticoagulants; Z79.84 Long term (current) use of oral hypoglycemic drugs; Z79.899 Other long term (current) drug therapy; Z85.3 Personal history of malignant neoplasm of breast; Z98.42 Cataract extraction status, left eye; Z99.2 Dependence on renal dialysis
CPT/HCPCS: 36245; 36561; 36569; 36600; 51702; 70450; 71250; 74176; 76000; 76705; 76770; 76937; 78226; 82533; 82565; 82570; 82805; 83036; 83540; 83550; 83605; 83735; 83930; 83935; 84100; 84132; 84300; 84443; 84520; 86850; 86900; 86901; 86920; 87040; 87070; 87081; 87086; 87205; 87324; 87340; 87449; 87804; 92950; 93005; 93306; 93970; 94002; 94003; 94640; 96365; 99291; A9537; C9113; G0378; J0131; J0171; J0461; J0690; J0696; J0885; J1160; J1630; J1644; J1940; J1956; J2060; J2250; J2270; J2370; J2405; J2543; J2704; J2916; J3010; J3475; J3480; J3490; J7030; J7040; J7042; J7050; J7060; P9016; P9046

== ENCOUNTER → 2019-03-11 | Outpatient (CLI) | payer MEDICARE, OTHER ==
[~2019-03-11] MED LIST changes: +ACAR50TA11 PO; -AMLO1CAP2 PO; +AMLO2.5T4 PO; -ATEN50TA PO; +BENA20 PO; +BENZ-51 PO; +CARV25 PO; +FURO20 PO; -GLIP10TA9 PO; +GLIP5 PO; -ISOS120T14 PO; +ISOS30TA6 PO; -METF-961 PO; +NITR.4 SL; -NITR0.4I3 IV; +OS500 PO; -PIOG15TA6 PO; +RIVA15T PO; +SITA1TAB6 PO; +SLOWK8 PO; +TIMO.25OS OU; +VITAD1000 PO; -WARF3TAB29 PO
== END | disposition home or self-care (01) ==
LOC: RADPV 07:23
PROVIDERS: ATTEND Internal Medicine
DX: R05 Cough (principal); I70.0 Atherosclerosis of aorta; R91.8 Other nonspecific abnormal finding of lung field

== ENCOUNTER → 2019-05-22 | Outpatient (CLI) | payer MEDICARE, OTHER ==
[~2019-05-22] MED LIST changes: -NITR.4 SL; +NITR0.4T52 SL
== END | disposition home or self-care (01) ==
LOC: RADPV 08:32
PROVIDERS: ATTEND Internal Medicine
DX: J44.9 Chronic obstructive pulmonary disease, unspecified (principal); I70.0 Atherosclerosis of aorta; I11.9 Hypertensive heart disease without heart failure

== ENCOUNTER → 2019-12-23 | Outpatient (CLI) | payer MEDICARE, OTHER ==
[~2019-12-23] MED LIST changes: -ACAR50TA11 PO; +ACAR50TA2 PO; -BENA20 PO; +BENA20TA11 PO; +CHOL100018 PO; -VITAD1000 PO
== END | disposition home or self-care (01) ==
LOC: RADPV 15:10
PROVIDERS: ATTEND Internal Medicine
DX: R05 Cough (principal)